=== PATIENT | male | born 1975 ===

== ENCOUNTER 2020-08-01 10:28 | Emergency (ER) | payer BC, SELFPAY ==
[2020-08-01 10:33] VITALS: BP 146/81; PULSE 81; RESP 17; TEMP 36.8; O2SAT 98
--- NOTE | 2020-08-01 10:48 | ED.SKABFB ---
HPI - Skin/Abscess/Foreign Bdy General Chief complaint: Skin/Abscess/Foreign Body Stated complaint: rash since wednesday, eyes swollen Time Seen by Provider: 08/01/20 10:33 History of Present Illness HPI narrative: Previously healthy 45 yo male presents to the ED for a rash. He has had rash for the past four days. Started on the left leg and quickly spread to trunk and all extremities. Very pruritic. Seen at urgent care and started on prednisone. Initial improvement, but seems to have stalled. He says that he did put on lotion prior to onset. No other exposure. No SOB, throat swelling, dizziness. Related Data Allergies Allergy/AdvReac Type Severity Reaction Status Date / Time No Known Allergies Allergy Verified 08/01/20 10:37 Review of Systems Review of Systems: All systems reviewed & are unremarkable except as noted in HPI and below Constitutional: Constitutional: Denies fatigue, Denies fever(s) and Denies weakness ENT: Denies sore throat Cardiovascular: Cardiovascular: Denies chest pain Respiratory: Respiratory: Denies dyspnea Gastrointestinal: Gastrointestinal: Denies nausea and Denies vomiting Integumentary/Breasts: Skin/Breast: Reports rash Neurologic: Denies dizziness and Denies weakness Allergic/Immunologic: Allergic/Immunologic: Denies lip swelling, Denies throat swelling and Denies tongue swelling [facility] Past Medical History Medical History (Updated 08/01/20 @ 14:35 by Jason Downey MD) Healthy adult Social History Social History (Updated 08/01/20 @ 14:36 by Jason Downey MD) Smoking status: Never smoker Gender identity (if verbalized by the patient): Male Exam Const: General: healthy appearing, no acute distress and alert Orientation/consciousness: patient oriented x3 HENMT: Head: normal to inspection Neck: Neck: normal visual inspection and no lymphadenopathy Chest: Chest palpation & inspection: no tenderness Resp: Effort & Inspection: normal respiratory effort Auscultation: clear to auscultation bilaterally, no rales, no rhonchi and no wheezes Cardio: Jugular venous distension: no JVD Rate: regular rate Rhythm: regular rhythm Heart sounds: no murmurs GI: Inspection: non-distended GI Palp: Yes Soft to palpation and No Tenderness to palpation present (GI) Skin: Rashes: rashes noted (wheals to trunk and extremities) Neuro: General: patient oriented x3, moves all extremities, no focal motor deficits and CN's II-XI intact bilaterally Speech: normal speech Gait exam (Neuro): Normal gait present Extrem: General: no edema Psych: Appearance: well kempt Affect: normal affect Course Vital Signs Vital signs: Vital Signs Temperature 36.8 C 08/01/20 10:33 Pulse Rate 81 08/01/20 10:33 Respiratory Rate 17 08/01/20 10:33 Blood Pressure 146/81 H 08/01/20 10:33 Pulse Oximetry 98 08/01/20 10:33 Temperature 36.8 C 08/01/20 10:33 Pulse Rate 78 08/01/20 12:10 Respiratory Rate 16 08/01/20 12:10 Blood Pressure 130/72 08/01/20 12:10 Pulse Oximetry 98 08/01/20 12:10 MDM - Skin/Abscess/Foreign Bdy MDM Narrative Medical decision making narrative: Appears consistent with urticaria. Responded well to epi. I will have him continue his current treatment and add pepcid. Discharge Plan Discharge Clinical Impression: Urticaria Patient Disposition: Home, Self-Care Condition: Stable Instructions: Urticaria (ED) Additional Instructions: Continue other medications and add pepcid Prescriptions: New famotidine [Pepcid] 40 mg tablet 40 mg PO BID Qty: 10 RF: 0 Follow-up/Referrals: PHYSICIAN,EDITOR [employer]INU[employer] SCRIPT [Primary Care Provider] -
[2020-08-01] MEDS: diphenhydrAMINE HCl CAP 25 MG CAPSULE 50 MG PO (11:10)
[2020-08-01] MEDS: FAMOTIDINE 20 MG TABLET PO (11:11)
[2020-08-01] MEDS: EPINEPHrine HCL INJ 1 MG/ML AMPUL 0.5 MG IM (11:11)
[2020-08-01 12:10] VITALS: BP 130/72; PULSE 78; RESP 16; O2SAT 98
== END 2020-08-01 12:11 | disposition home or self-care (01) ==
PROVIDERS: Emergency Provider Emergency Medicine
DX: L50.9 Urticaria, unspecified (principal)
CPT/HCPCS: 96372; 99283; A9270; J0171